=== PATIENT | female | born 1990 | race Caucasian/White ===

== ENCOUNTER 2017-02-14 12:25 | Emergency (ER) | payer OTHER ==
[2017-02-14 12:41] VITALS: BMI 33.6
--- NOTE | 2017-02-14 13:20 | PDOC ---
History of Present Illness <Mina Carrillo - Last Filed: 02/14/17 16:54> - General History Source: Patient, Parent(s) Exam Limitations: Intoxication - History of Present Illness Initial Comments: 27 yo F history of polysubstance abuse presents with intoxication. She states that she was in a program at [facility], checked herself out and used "everything". She states that she uses "every" drug and alcohol. She states she injected cocaine and heroin. Patient appears intoxicated, and states she has been drinking. Also states "I'm withdrawing", although she is unable to specify her symptoms. <Yen Rodriguez - Last Filed: 02/14/17 21:26> - General Chief Complaint: Substance Abuse Stated Complaint: DETOX Time Seen by Provider: 02/14/17 13:15 Past History <Mina Carrillo - Last Filed: 02/14/17 16:54> - Surgical History Neurologic Surgery: Yes - Psycho/Social/Smoking Cessation Hx Suicidal Ideation: Yes Smoking History: Current every day smoker Number of Cigarettes Smoked Daily: 10 Information on smoking cessation initiated: No Hx Alcohol Use: Yes (GIN) Drug/Substance Use Hx: Yes (BENZO, COCAINE) Substance Use Type: Alcohol, Cocaine <Yen Rodriguez - Last Filed: 02/14/17 21:26> - Past Medical History Allergies/Adverse Reactions: Allergies Allergy/AdvReac Type Severity Reaction Status Date / Time venlafaxine Allergy Hives Verified 02/14/17 20:58 VENAFLEXIN Allergy Hives Uncoded 02/14/17 12:42 Home Medications: Ambulatory Orders Baclofen 10 mg PO TID 02/14/17 Duloxetine HCl 30 mg PO DAILY 02/14/17 [place] Carbonate [Eskalith -] 300 mg PO TID 02/14/17 Naltrexone HCl [Revia] 50 mg PO DAILY 02/14/17 Pantoprazole Sodium [Protonix] 40 mg PO DAILY 02/14/17 Propranolol HCl 10 mg PO BID 02/14/17 Quetiapine Fumarate [Seroquel -] 25 mg PO HS 02/14/17 Quetiapine Fumarate [Seroquel] 100 tab PO DAILY 02/14/17 Trazodone HCl 100 mg PO HS 02/14/17 Review of Systems - Review of Systems Able to Perform ROS?: No (intoxicated) <Yen Rodriguez - Last Filed: 02/14/17 21:26> *Physical Exam - Vital Signs Last Vital Signs Temp Pulse Resp BP Pulse Ox 98.1 F 105 H 20 144/99 99 02/14/17 12:36 02/14/17 13:50 02/14/17 13:50 02/14/17 13:50 02/14/17 13:50 <Mina Carrillo - Last Filed: 02/14/17 16:54> - Vital Signs Last Vital Signs Temp Pulse Resp BP Pulse Ox 98.1 F 116 H 20 128/85 98 02/14/17 12:36 02/14/17 12:36 02/14/17 12:36 02/14/17 12:36 02/14/17 12:36 - Physical Exam Comments: GENERAL: Awake, speaks with eyes half open. Agitated, anxious. Appears intoxicated. HEAD: No signs of trauma EYES: PERRLA, EOMI, sclera anicteric, conjunctiva clear ENT: Auricles normal inspection, hearing grossly normal, nares patent, oropharynx clear without exudates. Moist mucosa NECK: Normal ROM, supple, no lymphadenopathy, JVD, or masses LUNGS: Breath sounds equal, clear to auscultation bilaterally. No wheezes, and no crackles HEART: Regular rate and rhythm, normal S1 and S2, no murmurs, rubs or gallops ABDOMEN: Soft, nontender, normoactive bowel sounds. No guarding, no rebound. No masses EXTREMITIES: Normal range of motion, no edema. No clubbing or cyanosis. No cords , erythema, or tenderness NEUROLOGICAL: Cranial nerves II through XII grossly intact. Normal speech. Motor and sensation intact. Gait not tested due to intoxication. SKIN: Warm, Dry, normal turgor. +Track rojas to the forearms B/L. <Yen Rodriguez - Last Filed: 02/14/17 21:26> ED Treatment Course - LABORATORY CBC & Chemistry Diagram: 02/14/17 15:40 02/14/17 15:40 - ADDITIONAL ORDERS Additional order review: Laboratory Results 02/14/17 02/14/17 15:40 15:40 Sodium 147 H Potassium 4.0 Chloride 110 H Carbon Dioxide 28 Anion Gap 9 BUN 6 L Creatinine 0.8 Creat Clearance w eGFR > 60 Random Glucose 111 H Calcium 8.6 Total Bilirubin 0.4 AST 19 ALT 29 Alkaline Phosphatase 90 Total Protein 7.6 Albumin 4.0 Alcohol, Quantitative 210.0 H* <Mina Carrillo - Last Filed: 02/14/17 16:54> - LABORATORY CBC & Chemistry Diagram: 02/14/17 15:40 02/14/17 15:40 <Yen Rodriguez - Last Filed: 02/14/17 21:26> Medical Decision Making - Medical Decision Making Pt arrived with mother, appeared intoxicated. Initially requesting detox. However, she stated to nursing and to security that she intended to hurt herself - specifically that she would jump in front of a moving car. Labs sent- alcohol level 210. Patient is altered, likely due to the alcohol, with inappropriate behavior. At time of 5pm shift change, she became agitated and more restless. She was given ativan and haldol for her agitation. Endorsed to Dr. Murray. Monitor to clinical sobriety. When she is more calm, can consult with psychiatry if needed, as at present, she is too intoxicated, and at times, not making sense. <Yen Rodriguez - Last Filed: 02/14/17 21:26> *DC/Admit/Observation/Transfer <Mina Carrillo - Last Filed: 02/14/17 16:54> <Yen Rodriguez - Last Filed: 02/14/17 21:26> Diagnosis at time of Disposition: Polysubstance abuse Alcohol intoxication Qualifiers: Complication of substance-induced condition: uncomplicated Qualified Code(s): F10.920 - Alcohol use, unspecified with intoxication, uncomplicated
[2017-02-14] MEDS ORDERED: chlordiazePOXIDE HCL 25 MG CAPSULE PO ONE (14:31)
[2017-02-14 16:01] LABS: BASOPHIL 1.4 % (0-2.0); EOSINOPHIL 1.3 % (0-4.5); MCH 31.3 pg (25.7-33.7); MCHC 33.7 g/dl (32.0-36.0); MEAN CELL VOLUME 92.9 fl (80-96); MEAN PLT VOLUME 7.2 fl (7.5-11.1); NEUTROPHILS 64.8 % (42.8-82.8); PLATELET COUNT 296 K/MM3 (134-434); RDW 13.4 % (11.6-15.6); WHITE BLOOD COUNT 11.7 K/mm3 (4.0-10.0)
[2017-02-14 16:32] LABS: ALK PHOS 90 U/L (45-117); ANION GAP 9 (8-16); BILIRUBIN,TOTAL 0.4 mg/dL (0.2-1.0); CALCIUM 8.6 mg/dL (8.5-10.1); CO2 28 mmol/L (21-32); CREATININE 0.8 mg/dL (0.55-1.02); GLUCOSE,RANDOM 111 mg/dL (74-106); SGOT/AST 19 U/L (15-37); SGPT/ALT 29 U/L (12-78); TOT PROT 7.6 g/dl (6.4-8.2)
[2017-02-14] MEDS ORDERED: HALOPERIDOL LACTATE 5 MG/ML IM ONE (17:35)
[2017-02-14] MEDS ORDERED: LORAZEPAM CARPU-JECT 2 MG/ML DISP.SYRIN IM ONE (17:35)
[2017-02-14] MEDS ORDERED: LORazepam 2 MG/ML SDV VIAL ONE (17:57)
--- NOTE | 2017-02-14 18:31 | PDOC ---
*Physical Exam - Vital Signs Last Vital Signs Temp Pulse Resp BP Pulse Ox 98.1 F 105 H 20 144/99 99 02/14/17 12:36 02/14/17 13:50 02/14/17 13:50 02/14/17 13:50 02/14/17 13:50 - Physical Exam Comments: 02/14/17 18:26 Patient was endorsed to me by Dr. Rojas. 27-year-old female with history polysubstance abuse, who either absconded or was ejected from inpatient rehabilitation presented to the ER with suicidal ideations. Patient was found to be clinically intoxicated with blood alcohol level of 210. Patient was repeatedly agitated and using profanity with staff. I attempted on several occasions to the interacting patient verbally and requested that she return to her bed without success. Patient received IM Haldol/Ativan and Benadryl for acute agitation and threats of self-harm. Patient placed on monitor. Will reassess. 02/14/17 21:22 pt is resting comfortably. easily arousable. denies suicidal ideations at this time. will cont to observe. 02/15/17 00:20 Patient is awake and alert, resting comfortably. Patient denies suicidal homicidal ideations at this time. Patient is clinically sober and will be medically cleared. Patient will be discharged in the a.m. and accompanied by her mother to the inpatient rehabilitation facility. ED Treatment Course - LABORATORY CBC & Chemistry Diagram: 02/14/17 15:40 02/14/17 15:40 - ADDITIONAL ORDERS Additional order review: Laboratory Results 02/14/17 02/14/17 02/14/17 15:40 15:40 15:40 Sodium 147 H Potassium 4.0 Chloride 110 H Carbon Dioxide 28 Anion Gap 9 BUN 6 L Creatinine 0.8 Creat Clearance w eGFR > 60 Random Glucose 111 H Calcium 8.6 Total Bilirubin 0.4 AST 19 ALT 29 Alkaline Phosphatase 90 Total Protein 7.6 Albumin 4.0 Serum , Qual Negative Alcohol, Quantitative 210.0 H* 02/14/17 15:40 RBC 4.07 MCV 92.9 MCHC 33.7 RDW 13.4 MPV 7.2 L Neutrophils % 64.8 Lymphocytes % 28.1 Monocytes % 4.4 Eosinophils % 1.3 Basophils % 1.4 *DC/Admit/Observation/Transfer Diagnosis at time of Disposition: Polysubstance abuse, Alcohol intoxication
[2017-02-15 00:06] VITALS: TEMP 98.3
--- NOTE | 2017-02-15 07:56 | PDOC ---
*Physical Exam - Vital Signs Last Vital Signs Temp Pulse Resp BP Pulse Ox 98.3 F 67 17 138/83 95 02/15/17 05:10 02/15/17 05:10 02/15/17 05:10 02/15/17 05:10 02/15/17 05:10 ED Treatment Course - LABORATORY CBC & Chemistry Diagram: 02/14/17 15:40 02/14/17 15:40 - ADDITIONAL ORDERS Additional order review: 02/14/17 15:40 RBC 4.07 MCV 92.9 MCHC 33.7 RDW 13.4 MPV 7.2 L Neutrophils % 64.8 Lymphocytes % 28.1 Monocytes % 4.4 Eosinophils % 1.3 Basophils % 1.4 - Medications Given in the ED: ED Medications Discontinued Medications Generic Name Dose Route Start Last Admin Trade Name Freq PRN Reason Stop Dose Admin Chlordiazepoxide HCl 50 mg 02/14/17 14:31 02/14/17 14:44 Librium - PO 02/14/17 14:32 50 mg ONCE ONE Administration Diphenhydramine HCl 50 mg 02/14/17 19:22 02/14/17 19:36 Benadryl Injection - IM 02/14/17 19:23 50 mg ONCE ONE Administration Haloperidol 5 mg 02/14/17 17:35 02/14/17 18:04 Haldol Injection (Fast Acting) - IM 02/14/17 17:36 5 mg ONCE ONE Administration Lorazepam 2 mg 02/14/17 17:35 02/14/17 18:04 Ativan Injection - IM 02/14/17 17:36 2 mg ONCE ONE Administration Medical Decision Making - Medical Decision Making 02/15/17 10:00 Patient endorsed to me by Dr. Ly at 7am shift change. Awaiting pickup by her mom. Nestor SI. 02/15/17 11:46 Mom returned to pick patient up. She has information for inpatient rehabs from onsite case manager. She will present there today. *DC/Admit/Observation/Transfer Diagnosis at time of Disposition: Polysubstance abuse Alcohol intoxication Qualifiers: Complication of substance-induced condition: uncomplicated Qualified Code(s): F10.920 - Alcohol use, unspecified with intoxication, uncomplicated - Discharge Dispostion Disposition: HOME Condition at time of disposition: Stable Admit: No - Patient Instructions Printed Discharge Instructions: DI for Alcohol Abuse, DI for Drug Abuse and Drug Addiction
[2017-02-15 11:59] VITALS: BP 115/80; PULSE 63
--- NOTE | 2017-02-21 12:16 | EKG ---
Test Reason : Blood Pressure : / mmHG Vent. Rate : 096 BPM Atrial Rate : 096 BPM P-R Int : 152 ms QRS Dur : 078 ms QT Int : 392 ms P-R-T Axes : 033 009 022 degrees QTc Int : 495 ms NORMAL SINUS RHYTHM CANNOT RULE OUT ANTERIOR INFARCT , AGE UNDETERMINED ABNORMAL ECG NO PREVIOUS ECGS AVAILABLE Confirmed by NEIDA SIMPSON MD ([id number]) on 02/21/2017 12:16:16 PM Referred By: Confirmed By:NEIDA SIMPSON MD
== END 2017-02-15 12:00 | disposition home or self-care (01) ==
LOC: JER 12:25
PROC: 3E023GC Introduction of Other Therapeutic Substance into Muscle, Percutaneous Approach (ICD-10-PCS; principal; 2017-02-14)
PROC: 3E023NZ Introduction of Analgesics, Hypnotics, Sedatives into Muscle, Percutaneous Approach (ICD-10-PCS; 2017-02-14)
DX: F10.920 Alcohol use, unspecified with intoxication, uncomplicated (principal); F19.10 Other psychoactive substance abuse, uncomplicated; F17.210 Nicotine dependence, cigarettes, uncomplicated
CPT/HCPCS: 36415; 80053; 80307; 84703; 85025; 93005; 93010; 99284-25